=== PATIENT | female | born 1980 | race African-American/Black ===

== ENCOUNTER 2020-12-29 20:03 | Emergency (ER) | payer OTHER ==
[2020-12-29 20:20] VITALS: BP 128/88; PULSE 98; TEMP 98.6; BMI 33.5
== END 2020-12-29 20:49 | disposition home or self-care (01) ==
LOC: JERFT 20:03 → JER 20:03 → JERFT 20:49
DX: J34.89 Other specified disorders of nose and nasal sinuses (principal); H04.203 Unspecified epiphora, bilateral; H10.45 Other chronic allergic conjunctivitis; Z11.52 Encounter for screening for COVID-19
CPT/HCPCS: 99283-25; C9803; U0003; U0005

== ENCOUNTER 2021-01-20 17:23 | Inpatient (IN) | payer OTHER ==
[2021-01-20] MEDS ORDERED: ACETAMINOPHEN 1000 MG/100 ML VIAL (NON FORMULARY) IVPB ONE (17:52)
[2021-01-20] MEDS ORDERED: METOCLOPRAMIDE HCL INJECTION 10 MG/2 ML VIAL IVPUSH ONE (17:52)
[2021-01-20] MEDS ORDERED: LACTATED RINGERS SOLUTION 1000 ML INFUS.BAG IV ONE (17:52)
[2021-01-20] MEDS ORDERED: METOCLOPRAMIDE HCL INJECTION 10 MG/2 ML VIAL ONE (18:27)
[2021-01-20] MEDS ORDERED: ACETAMINOPHEN INJECTION 100 ML IVPB ONE (18:27)
[2021-01-20 18:33] LABS: BASO % 0.5 % (0-2.0); EOS % 1.2 % (0-4.5); HEMATOCRIT 14.4 % (32.4-45.2); MCHC 30.2 g/dl (32.0-36.0); MEAN CELL VOLUME 63.5 fl (80-96); MEAN PLT VOLUME 8.3 fl (7.5-11.1); MONO % 10.5 % (3.8-10.2); NEUT % 66.8 % (42.8-82.8); PLATELET COUNT 256 K/MM3 (134-434); RBC 2.26 M/mm3 (3.60-5.2); RDW 21.6 % (11.6-15.6); WHITE BLOOD COUNT 8.8 K/mm3 (4.0-10.0)
[2021-01-20 18:36] LABS: MCH 19.2 pg (25.7-33.7)
[2021-01-20 18:37] LABS: HEMOGLOBIN 4.4 GM/dL (10.7-15.3); INR 1.01 (0.83-1.09); PROTHROMBIN TIME (PATIENT) 12.4 SEC (9.7-13.0)
[2021-01-20 18:40] LABS: ACTIVATED PTT 26.4 SECONDS (25.2-36.5)
[2021-01-20 18:53] LABS: CALCIUM 8.3 mg/dL (8.5-10.1)
[2021-01-20 18:54] LABS: BLOOD UREA NITROGEN 10.7 mg/dL (7-18); MAGNESIUM 1.9 mg/dL (1.8-2.4)
[2021-01-20 18:57] LABS: CREATININE 0.8 mg/dL (0.55-1.3)
[2021-01-20 18:58] LABS: BILIRUBIN,TOTAL 0.2 mg/dL (0.2-1); TOT PROT 6.7 g/dl (6.4-8.2)
[2021-01-20 20:05] LABS: ANISOCYTOSIS 2+; MACROCYTOSIS 0; PLATELET ESTIMATE NORMAL; TARGET CELLS 1+; TEAR DROP CELLS 1+
[2021-01-20] MEDS ORDERED: DOCUSATE SODIUM 100 MG CAPSULE (FP) PO PRN (20:35)
[2021-01-20] MEDS ORDERED: MAGNESIUM SULF 50% (8.12 MEQ/2 ML-1 GM VIAL) IVPB ONE (21:13)
[2021-01-20] MEDS ORDERED: ACETAMINOPHEN 325 MG TABLET (FP) PO PRN (21:14)
[2021-01-20] MEDS ORDERED: PHENYLEPHRINE HCL/COCOA BUTTER SUPPOSITORY RC PRN (21:43)
[2021-01-20] MEDS ORDERED: LACTATED RINGERS SOLUTION 1,000 ML/1,000 ML INFUS.BAG IV SCH (22:15)
[2021-01-20] MEDS ORDERED: MAGNESIUM 1GM/D5W - 1 GM/100 ML IVPB IVPB ONE (22:17)
[2021-01-20 23:40] LABS: HCG,QUALITATIVE URINE Negative
[2021-01-20 23:41] LABS: PH,URINE 5.5 (5.0-8.0); URINE APPEARANCE CLEAR; URINE BILIRUBIN NEGATIVE (NEGATIVE); URINE COLOR YELLOW; URINE GLUCOSE (UA) NEGATIVE (NEGATIVE); URINE KETONE NEGATIVE (NEGATIVE); URINE LEUK ESTERASE NEGATIVE (NEGATIVE); URINE NITRITE NEGATIVE (NEGATIVE); URINE PROTEIN TRACE (NEGATIVE); URINE UROBILINOGEN 0.2 mg/dL (0.2-1.0)
[2021-01-21] MEDS: INSULIN SLIDING SCALE (NOVOLOG) 1 VIAL SQ SCH ×5 (00:44→21:34)
[2021-01-21 08:04] LABS: MCH 23.3 pg (25.7-33.7); MCHC 32.1 g/dl (32.0-36.0); MEAN CELL VOLUME 72.8 fl (80-96); MEAN PLT VOLUME 9.2 fl (7.5-11.1); PLATELET COUNT 219 K/MM3 (134-434); RBC 2.88 M/mm3 (3.60-5.2); RDW 27.5 % (11.6-15.6); WHITE BLOOD COUNT 9.1 K/mm3 (4.0-10.0)
[2021-01-21 08:13] LABS: PROTHROMBIN TIME (PATIENT) 12.1 SEC (9.7-13.0)
[2021-01-21 08:25] LABS: BLOOD UREA NITROGEN 6.3 mg/dL (7-18); MAGNESIUM 1.8 mg/dL (1.8-2.4)
[2021-01-21 08:26] LABS: ALBUMIN 2.6 g/dl (3.4-5.0); CREATININE 0.6 mg/dL (0.55-1.3); HEMOGLOBIN 6.7 GM/dL (10.7-15.3)
[2021-01-21 08:27] LABS: PHOSPHOROUS 2.7 mg/dL (2.5-4.9)
[2021-01-21 08:28] LABS: BILIRUBIN,TOTAL 0.6 mg/dL (0.2-1); TOT PROT 5.9 g/dl (6.4-8.2)
[2021-01-21] MEDS: DOCUSATE SODIUM 100 MG CAPSULE (FP) PO SCH ×2 (10:15→21:34)
[2021-01-21 12:14] LABS: ANISOCYTOSIS 1+; MACROCYTOSIS 0; OVALOCYTE 2+; PLATELET ESTIMATE NORMAL; TEAR DROP CELLS 1+
[2021-01-21] MEDS ORDERED: FUROSEMIDE 40 MG/4 ML INJECTABLE VIAL IVPUSH ONE (15:46)
[2021-01-21 16:18] VITALS: BMI 34.8
[2021-01-21] MEDS ORDERED: FAMOTIDINE 20 MG TABLET PO ONE (17:27)
[2021-01-21 18:30] LABS: BASO % 0.9 % (0-2.0); HEMOGLOBIN 8.1 GM/dL (10.7-15.3); MCH 22.6 pg (25.7-33.7); MCHC 32.2 g/dl (32.0-36.0); MEAN CELL VOLUME 70.2 fl (80-96); MEAN PLT VOLUME 8.2 fl (7.5-11.1); MONO % 10.5 % (3.8-10.2); NEUT % 69.6 % (42.8-82.8); PLATELET COUNT 234 K/MM3 (134-434); RBC 3.57 M/mm3 (3.60-5.2); RDW 26.6 % (11.6-15.6); WHITE BLOOD COUNT 9.5 K/mm3 (4.0-10.0)
[2021-01-22] MEDS: INSULIN SLIDING SCALE (NOVOLOG) 1 VIAL SQ SCH (06:12)
[2021-01-22 08:31] LABS: BASO % 0.6 % (0-2.0); EOS % 3.1 % (0-4.5); HEMATOCRIT 24.7 % (32.4-45.2); HEMOGLOBIN 7.7 GM/dL (10.7-15.3); LYMPH % 20.3 % (8-40); MCH 22.2 pg (25.7-33.7); MCHC 31.2 g/dl (32.0-36.0); MEAN PLT VOLUME 9.3 fl (7.5-11.1); MONO % 12.1 % (3.8-10.2); NEUT % 63.9 % (42.8-82.8); PLATELET COUNT 230 K/MM3 (134-434); RBC 3.48 M/mm3 (3.60-5.2); RDW 27.8 % (11.6-15.6); WHITE BLOOD COUNT 7.6 K/mm3 (4.0-10.0)
[2021-01-22 08:55] LABS: CHOLESTEROL 151 mg/dL (50-200); TRIGLYCERIDES 132 mg/dL (0-150)
[2021-01-22 08:56] LABS: LDL CHOLESTEROL (ONLY SJRH) 74 mg/dL (5-100)
[2021-01-22 08:57] LABS: HDL CHOLESTEROL 49 mg/dL (40-60)
[2021-01-22] MEDS: DOCUSATE SODIUM 100 MG CAPSULE (FP) PO SCH (09:56)
[2021-01-22] MEDS ORDERED: POLYETHYLENE GLYCOL 3350 119 GM BTL PO SCH (10:00)
[2021-01-22 17:37] VITALS: BP 110/66; PULSE 72; TEMP 98
== END 2021-01-22 14:33 | disposition home or self-care (01) | DRG 812 ==
LOC: JER 17:23 → JERBED 19:02 → J5S 01-21 03:07
PROVIDERS: ADMIT Internal Medicine; ATTEND Nurse Practitioner Family
PROC: 30233N1 Transfusion of Nonautologous Red Blood Cells into Peripheral Vein, Percutaneous Approach (ICD-10-PCS; principal; 2021-01-20)
DX: D50.9 Iron deficiency anemia, unspecified (principal); K21.9 Gastro-esophageal reflux disease without esophagitis; Z68.34 Body mass index [BMI] 34.0-34.9, adult; E66.01 Morbid (severe) obesity due to excess calories; K64.4 Residual hemorrhoidal skin tags; N92.0 Excessive and frequent menstruation with regular cycle; R07.9 Chest pain, unspecified; E28.2 Polycystic ovarian syndrome; R00.0 Tachycardia, unspecified
CPT/HCPCS: 36415; 36430; 36511; 71045-TC-FY; 74178-TC; 76856-TC; 80053; 80061; 81003; 82272; 82533; 82570; 82607; 82728; 82746; 82962; 83036; 83540; 83550; 83690; 83721; 83735; 84100; 84156; 84443; 84484; 84703; 85025; 85027; 85610; 85730; 86850; 86900; 86901; 86922; 87086; 93005; 93010; 94010; 99285-25; C9803; J0131; P9038; P9058; U0003; U0005

== ENCOUNTER 2021-11-29 04:43 | Day surgery (SDC) | payer OTHER ==
[2021-11-24 11:55] VITALS: BMI 34.0
[2021-11-29 06:53] LABS: HEMATOCRIT 28.5 % (32.4-45.2); HEMOGLOBIN 8.6 GM/dL (10.7-15.3); MCH 20.1 pg (25.7-33.7); MCHC 30.1 g/dl (32.0-36.0); MEAN CELL VOLUME 66.8 fl (80-96); MEAN PLT VOLUME 8.6 fl (7.5-11.1); PLATELET COUNT 353 10^3/uL (134-434); RBC 4.27 M/mm3 (3.60-5.2); RDW 21.8 % (11.6-15.6)
[2021-11-29] MEDS ORDERED: PROPOFOL 20 ML ONE ×2 (07:15→09:45)
[2021-11-29] MEDS ORDERED: MIDAZOLAM HCL 2 MG/2 ML SINGLE DOSE VIAL ONE (07:16)
[2021-11-29] MEDS ORDERED: ROCURONIUM BROMIDE 50 MG/5 ML SYRINGE ONE (07:16)
[2021-11-29] MEDS ORDERED: DEXAMETHASONE SOD PHOSPHATE 4 MG/1 ML VIAL ONE (08:24)
[2021-11-29] MEDS ORDERED: BUPIVACAINE HCL/PF 0.5% (5MG/ML) 10 ML VIAL IJ ONE (08:28)
[2021-11-29] MEDS ORDERED: ceFAZolin SODIUM 1 GM VIAL IVPB ONE (08:50)
[2021-11-29] MEDS ORDERED: ceFAZolin SODIUM 1 GM VIAL ONE (08:51)
[2021-11-29] MEDS ORDERED: SUCCINYLCHOLINE CHLORIDE 200 MG/10 ML SYRINGE ONE (10:09)
[2021-11-29] MEDS ORDERED: ONDANSETRON 4 MG/2 ML VIAL IVPUSH PRN (10:24)
[2021-11-29] MEDS ORDERED: oxyCODONE HCL 5 MG TABLET PO PRN (10:24)
[2021-11-29] MEDS ORDERED: LACTATED RINGERS SOLUTION 1,000 ML IV SCH (10:30)
[2021-11-29 12:37] VITALS: TEMP 97.7
[2021-11-29] MEDS ORDERED: oxyCODONE HCL 5 MG TABLET ONE (14:18)
[2021-11-29 14:47] VITALS: BP 145/85; PULSE 99
[2021-11-29] MEDS ORDERED: metFORMIN HCL 500 MG TABLET (FP) PO SCH (16:30)
[2021-11-30] MEDS ORDERED: PATIENT'S OWN MEDICATION (NON-FORMULARY) (Iron [Iron] 18 MG Tablet) PO SCH (10:00)
[2021-11-30] MEDS ORDERED: CHLORTHALIDONE 50 MG TABLET PO SCH (10:00)
== END 2021-11-29 14:58 | disposition home or self-care (01) ==
LOC: JASU-SURG 04:43
PROVIDERS: ATTEND Obstetrics & Gynecology
PROC: 0UT14ZZ Resection of Left Ovary, Percutaneous Endoscopic Approach (ICD-10-PCS; principal; 2021-11-29 07:30)
DX: N83.202 Unspecified ovarian cyst, left side (principal); I10 Essential (primary) hypertension; E11.9 Type 2 diabetes mellitus without complications; Z79.84 Long term (current) use of oral hypoglycemic drugs
CPT/HCPCS: 36415; 81025; 82962; 85027; 86922; 88108; 88305-TC; 88307-TC; 94760